=== PATIENT | male | born 1960 | race American Indian/Alaskan Native ===

== ENCOUNTER 2021-04-02 12:05 | Emergency (ER) | payer OTHER ==
--- NOTE | 2021-04-02 12:20 | Emergency Department Report ---
ED CPR HPI - General Chief Complaint: Cardiac Arrest/CPR Stated Complaint: CARDIAC ARREST Time Seen by Provider: 04/02/21 12:19 Source: EMS (Verbal report received from emergency medical services. EMS documentation not available at time of chart dictation ), RN notes reviewed Mode of arrival: Stretcher Limitations: Altered Mental Status, Physical Limitation - History of Present Illness Initial Comments: The patient was evaluated in the emergency department for symptoms described in the history of present illness. He/she was evaluated in the context of the global COVID-19 pandemic, which necessitated consideration that the patient might be at risk for infection with the virus that causes COVID-19. Institutional protocols and algorithms that pertain to the evaluation of patients at risk for COVID-19 are in a state of rapid change based on information released by regulatory bodies including the CDC and federal and state organizations. These policies and algorithms were followed during the patient's care in the emergency department. Please note that these policies, procedures and recommendations changed on a rapid basis. The patient is a 60-year-old gentleman. He is brought to the hospital by EMS as an [id number] cardiac arrest. As per EMS, patient has a past medical history of obesity, and renal disease requiring peritoneal dialysis. EMS reports that they received a 911 phone call for patient who collapsed, and was unresponsive. EMS reports that patient was at home, and bystander CPR was not initiated. They further report that the patient was not breathing upon their initial evaluation, and was in pulseless electrical activity. EMS believes that their first time of medical contact was 11: 20 2 AM today. EMS intubated the field with an 8.0 endotracheal tube, and placed a cervical collar. The patient was also placed on a backboard. The patient had a right lower extremity IO placed, and received 3 rounds of epinephrine, multiple rounds of CPR, and sodium bicarbonate. EMS reports normal Accu-Chek in the field. EMS reports that the patient was pulseless for the entire duration of their care, at least 45 minutes from the point of their initial medical contact. At no point time did the patient ever develop pulses, or develop a shockable rhythm. Upon arrival to this emergency room, the patient has a GCS of 3T, pupils dilated, do not react to light, retinal hemorrhages noted, receiving [id number] ventilation through an endotracheal tube, and high-quality CPR. Standard ACLS interventions, and resuscitative measures are continued. Unfortunately, pulses are not able to be obtained. Monitor demonstrates asystole. Bedside cardiac ultrasound shows no coordinated ventricular activity whatsoever, and there are no pulsatility or pulsatile waveforms noted on arterial Doppler interrogation. Therefore, his resuscitative efforts were terminated secondary to medical futility MD Complaint: collapsed during rest -: hour(s) Place: home Bystander CPR Performed: No Shock Advised: No Initial Findings in the Field: unresponsive, no pulse, PEA ROSC in the Field: No Associated Injuries: No Treatments Prior to Arrival: intubation, chest compressions, epinephrine mgs #, sodium bicarbonate, spinal immobilization ED Review of Systems ROS: Stated complaint: CARDIAC ARREST Other details as noted in HPI Comment: Unobtainable due to pts medical conditions ED Physical Exam - General Limitations: Altered Mental Status, Physical Limitation General appearance: obtunded, obese - Head Head exam: Present: atraumatic, normocephalic - Eye Eye exam: Present: other (Pupils dilated to light, and do not react.) - ENT ENT exam: Present: normal exam, mucous membranes moist, other (Endotracheal tube noted in the oropharynx) - Neck Neck exam: Present: normal inspection, other (Cervical collar in place) - Respiratory Respiratory exam: Present: other (No breath sounds without [id number]-oqfi ventilation). Absent: normal lung sounds bilaterally, respiratory distress - Cardiovascular Cardiovascular Exam: Present: other (Patient is pulseless) - GI/Abdominal GI/Abdominal exam: Present: soft, other (Peritoneal dialysis catheter in place). Absent: distended, tenderness, guarding, rebound, rigid - Rectal Rectal exam: Present: deferred - exam: Present: normal inspection External exam: Present: normal external exam - Extremities Exam Extremities exam: Present: normal inspection, pedal edema, other (I/O noted in the right lower extremity) - Back Exam Back exam: Present: normal inspection - Neurological Exam Neurological exam: Present: altered, other (GCS of 3T, nonverbal) - Psychiatric Psychiatric exam: Present: other (Nonverbal) - Skin Skin exam: Present: warm ED Medical Decision Making - Medical Decision Making Differential diagnosis, including but not limited to: Hyperkalemia, acute coronary syndrome, pulmonary embolism, acidosis, intracranial hemorrhage Critical care attestation.: If time is entered above; I have spent that time in minutes in the direct care of this critically ill patient, excluding procedure time. ED Disposition Clinical Impression: Cardiac arrest Disposition: DC-20 Is pt being admited?: No Does the pt Need Aspirin: No Condition: Undetermined
[2021-04-02] MEDS ORDERED: EPINEPHrine 1 MG/10 ML SYRINGE ONE (16:01)
[2021-04-02] MEDS ORDERED: SODIUM BICARB 8.4% 50 MEQ/50 ML SYRINGE IV ONE (16:01)
[2021-04-02] MEDS ORDERED: CALCIUM CHLORIDE 1,000 MG/10 ML SYRINGE IV ONE (16:01)
== END 2021-04-02 14:00 ==
LOC: ED 12:05
DX: I46.9 Cardiac arrest, cause unspecified (principal)
CPT/HCPCS: 92950; 99285; J0171